=== PATIENT | male | born 1980 | race American Indian/Alaskan Native ===

== ENCOUNTER 2025-06-04 16:06 | Inpatient (IN) | payer OTHER ==
[2025-06-04 16:36] VITALS: BMI 27.0
[2025-06-04 16:36] LABS: ABSOLUTE IMMATURE GRANULOCYTES 0.01 x10^3/uL (0.0-0.031); BASOPHILS # 0.03 x10^3/uL (0.01-0.08); EOSINOPHIL % 1.6 % (0.8-7.0); EOSINOPHILS # 0.11 x10^3/uL (0.04-0.54); MCHC 33.6 g/dl (32.3-36.5); MEAN CELL VOLUME 81.8 fl (79.0-92.2); MEAN PLT VOLUME 10.2 fl (9.4-12.4); MONOCYTE # 0.62 x10^3/uL (0.30-0.82); MONOCYTE % 9.2 % (5.3-12.2); RDW 12.5 % (12.1-15.9)
[2025-06-04 16:43] LABS: INR 1.08 (0.83-1.09); PROTHROMBIN TIME (PATIENT) 12.0 SEC (9.7-13.0)
[2025-06-04 16:52] LABS: ALK PHOS 37.0 U/L (45-117); CO2 25.0 mmol/L (21-32); CREATININE 0.8 mg/dl (0.6-1.3); GLUCOSE,RANDOM 90.0 mg/dl (74-106); SGOT/AST 9.0 U/L (15-37); SGPT/ALT 13.0 U/L (7-52); TOT PROT 5.5 g/dl (6.4-8.2)
[2025-06-04] MEDS: FAMOTIDINE 20 MG/50 ML IVPB 20 MG/50 ML MG IVPB ONE (17:25)
[2025-06-04] MEDS: SODIUM CHLORIDE 1,000 ML IV STA (17:28)
[2025-06-04] MEDS: LACTATED RINGERS SOLUTION 1,000 ML/1,000 ML INFUS.BAG IV SCH (19:41)
[2025-06-04] MEDS: PANTOPRAZOLE SODIUM 40 MG VIAL IVPUSH SCH (19:42)
[2025-06-04 20:11] LABS: HCV DIAGNOSTIC IN-HOUSE W/RFLX NON-REACTIVE (NONREACTIVE); HIV INTERPRETATION NEGATIVE (NEGATIVE)
[2025-06-05 00:27] LABS: ABSOLUTE IMMATURE GRANULOCYTES 0.02 x10^3/uL (0.0-0.031)
[2025-06-05 00:46] LABS: MEAN CELL VOLUME 81.4 fl (79.0-92.2); RDW 12.9 % (12.1-15.9)
[2025-06-05] MEDS: MELATONIN 5 MG TABLETS PO ONE (00:46)
[2025-06-05 00:54] LABS: BASOPHILS # 0.03 x10^3/uL (0.01-0.08); EOSINOPHIL % 2.1 % (0.8-7.0); EOSINOPHILS # 0.13 x10^3/uL (0.04-0.54); MCHC 34.0 g/dl (32.3-36.5); MEAN PLT VOLUME 10.5 fl (9.4-12.4); MONOCYTE # 0.44 x10^3/uL (0.30-0.82); MONOCYTE % 7.0 % (5.3-12.2)
[2025-06-05 09:23] LABS: MCHC 33.5 g/dl (32.3-36.5); MEAN CELL VOLUME 82.2 fl (79.0-92.2); MEAN PLT VOLUME 10.5 fl (9.4-12.4); RDW 12.8 % (12.1-15.9)
[2025-06-05 09:48] LABS: CO2 28.0 mmol/L (21-32); GLUCOSE,RANDOM 93.0 mg/dL (74-106)
[2025-06-05 09:50] LABS: CREATININE 0.7 mg/dL (0.55-1.3); SGOT/AST 14.0 U/L (15-37); SGPT/ALT 22.0 U/L (13-61)
[2025-06-05 09:51] LABS: TOT PROT 5.0 g/dl (6.4-8.2)
[2025-06-05 09:53] LABS: ALK PHOS 34.0 U/L (45-117)
[2025-06-05] MEDS: ACETAMINOPHEN 1000 MG/100 ML BAG IVPB PRN (10:44)
[2025-06-05] MEDS: LACTATED RINGERS SOLUTION 1,000 ML/1,000 ML INFUS.BAG IV SCH (11:46)
[2025-06-05] MEDS: SODIUM CHLORIDE 1,000 ML IV STA (20:51)
[2025-06-05] MEDS: MELATONIN 5 MG TABLETS PO PRN (21:40)
[2025-06-05] MEDS: FLUTICASONE PROP 0.05% 16 GM NASAL SPRAY NS SCH (21:40)
[2025-06-06] MEDS: SODIUM CHLORIDE 1,000 ML IV STA (05:59)
[2025-06-06 08:11] LABS: MCHC 32.3 g/dl (32.3-36.5); MEAN CELL VOLUME 83.3 fl (79.0-92.2); MEAN PLT VOLUME 10.4 fl (9.4-12.4); RDW 12.8 % (12.1-15.9)
[2025-06-06] MEDS: IRON SUCROSE INJECTION 300 MG in SODIUM CHLORIDE 235 ML IVPB ONE (09:54)
[2025-06-07 09:33] LABS: ABSOLUTE IMMATURE GRANULOCYTES 0.01 x10^3/uL (0.0-0.031); BASOPHILS # 0.02 x10^3/uL (0.01-0.08); EOSINOPHIL % 2.6 % (0.8-7.0); EOSINOPHILS # 0.12 x10^3/uL (0.04-0.54); MCHC 33.1 g/dl (32.3-36.5); MEAN CELL VOLUME 82.9 fl (79.0-92.2); MEAN PLT VOLUME 10.7 fl (9.4-12.4); MONOCYTE # 0.31 x10^3/uL (0.30-0.82); MONOCYTE % 6.8 % (5.3-12.2); RDW 12.9 % (12.1-15.9)
[2025-06-07 10:00] LABS: CO2 30.0 mmol/L (21-32)
[2025-06-07 10:01] LABS: GLUCOSE,RANDOM 115.0 mg/dL (74-106)
[2025-06-07 10:04] LABS: CREATININE 0.7 mg/dL (0.55-1.3)
[2025-06-07 10:59] VITALS: BP 120/67; PULSE 70; RESP 19; TEMP 98.2
[2025-06-07] MEDS: IRON SUCROSE INJECTION 200 MG in SODIUM CHLORIDE 100 ML IVPB ONE (11:46)
== END 2025-06-07 14:15 | disposition home or self-care (01) | DRG 253 ==
LOC: FER 16:06 → FM/S 18:12 → J6S 21:56
PROVIDERS: ADMIT Internal Medicine; ATTEND Internal Medicine
PROC: 0DB78ZX Excision of Stomach, Pylorus, Via Natural or Artificial Opening Endoscopic, Diagnostic (ICD-10-PCS; 2025-06-05)
PROC: 0DB98ZX Excision of Duodenum, Via Natural or Artificial Opening Endoscopic, Diagnostic (ICD-10-PCS; 2025-06-05)
PROC: 0DB58ZX Excision of Esophagus, Via Natural or Artificial Opening Endoscopic, Diagnostic (ICD-10-PCS; principal; 2025-06-05 10:30)
DX: K92.2 Gastrointestinal hemorrhage, unspecified (principal); K63.5 Polyp of colon; E78.5 Hyperlipidemia, unspecified; D62 Acute posthemorrhagic anemia; E66.9 Obesity, unspecified; Z68.27 Body mass index [BMI] 27.0-27.9, adult; K20.90 Esophagitis, unspecified without bleeding; K29.70 Gastritis, unspecified, without bleeding
CPT/HCPCS: 36415; 71045-TC-FY; 80048; 80053; 82272; 83036; 83735; 83880; 84100; 84443; 84484; 85025; 85027; 85610; 86803; 86850; 86900; 86901; 87389; 88305-TC; 88312-TC; 88342-TC; 99285-25; J1756